=== PATIENT | female | born 1965 | race American Indian/Alaskan Native ===

== ENCOUNTER 2019-12-21 09:42 | Outpatient (CLI) | payer OTHER ==
[2019-12-21 10:19] LABS: Hematocrit 41.3 % (30.3-42.9); Hemoglobin 13.8 gm/dl (10.1-14.3); Mean Corpuscular HGB Conc 33 % (30-34); Mean Corpuscular Volume 94 fl (79-97); Platelet Count 208 K/mm3 (140-440); Red Blood Count 4.41 M/mm3 (3.65-5.03); Red Cell Distribution Width 13.8 % (13.2-15.2)
[2019-12-21 10:36] LABS: Alanine Aminotransferase 22 units/L (7-56); Albumin 4.3 g/dL (3.9-5); BUN/Creatinine Ratio 19; Blood Urea Nitrogen 15 mg/dL (7-17); Calcium 9.2 mg/dL (8.4-10.2); Chol/HDL Ratio 2.47 %; HDL Cholesterol 88 mg/dL (40-59); Hemolysis Index 12; LDL Cholesterol,Direct 125 mg/dL (50-130)
[2019-12-21 11:35] LABS: ABG Base Excess 1.5 mmol/L (-2.0-3.0); ABG HCO3 25.2 mmol/L (20.0-26.0); ABG Methemoglobin 0.6 % (0.0-1.5); ABG Oxygen Saturation 96.6 % (95.0-99.0); ABG PCO2 36.8 mm Hg; ABG PH 7.454 pH Units (7.350-7.450); ABG PO2 78.3 mm Hg (80.0-90.0)
--- NOTE | 2019-12-21 12:15 | Fluoroscopy Report ---
UPPER GI HISTORY: Gastroesophageal reflux. Uncontrollable dry cough for weeks TECHNIQUE: Single and double contrast barium technique utilized to evaluate the esophagus, stomach, and duodenal C-loop. FINDINGS: To begin the exam, swallowing was evaluated in the lateral position under direct fluorosco py. Swallowing was normal. No mucosal irregularity, mass, mass effect, or critical stenosis. There were no abnormal tertiary c ontractions as seen with dysmotility. No gastroesophageal reflux. A small sliding hiatal hernia was w itnessed during this exam measuring 3-4 cm in diameter. IMPRESSION: Small sliding hiatal hernia, otherwise, unremarkable upper GI. No gastroesophageal reflu x was witnessed during this exam. Of note, the patient did cough throughout this exam. Fluoroscopic time: 2.4 minutes Number of fluoroscopic images: 43 Signer Name: Alexander Gomez Jr, MD Signed: 12/21/2019 12:10 PM Workstation Name: [id number]
== END 2019-12-21 09:43 | disposition home or self-care (01) ==
LOC: FLUORO 09:42
PROVIDERS: ATTEND Internal Medicine
DX: K44.9 Diaphragmatic hernia without obstruction or gangrene (principal); J30.89 Other allergic rhinitis; K21.9 Gastro-esophageal reflux disease without esophagitis; R05 Cough
CPT/HCPCS: 36415; 74246; 80053; 80061; 82785; 82803; 84436; 84443; 85027